=== PATIENT | male | born 1950 | race Caucasian/White ===

== ENCOUNTER 2016-06-26 00:27 | Day surgery (SDC) | payer MEDICARE, OTHER ==
[~2016-06-26] VITALS: Ht 175.3 cm; Wt 106.4 kg
[2016-06-26] VITALS (13 sets, daily range): BP systolic 119–165; BP diastolic 70–108; PULSE 55–69; RESP 11–18; O2SAT 95–100
[~2016-06-26 00:27] MED LIST: BUPR150T6 PO; BUSP5TAB3 PO; INS7030U SUBQ; INSU3INS3 SUBQ; LISI10TA2 PO; PRAZ2CAP2 PO; RISP2TAB3 PO; SIMV20TA4 PO; SOLI5TAB2 PO; TRAZ-118 PO; ZYL100 PO
[2016-06-26] MEDS ORDERED: 0.9% Sodium Chloride 1,000 ML IV ONE (08:16)
[2016-06-26] MEDS ORDERED: LOSA100T29 PO (09:18)
[2016-06-26] MEDS ORDERED: INSU100I13 SUBQ (09:18)
[2016-06-26] MEDS ORDERED: TRIH5TAB2 PO (09:18)
[2016-06-26] MEDS ORDERED: RISP3TAB3 PO (09:18)
[2016-06-26] MEDS ORDERED: CHOL500011 PO (09:18)
[2016-06-26] MEDS ORDERED: BUSP15TA3 PO ×2 (09:18→09:19)
[2016-06-26] MEDS ORDERED: FLUT16SP NS (09:18)
[2016-06-26] MEDS ORDERED: DICL50TA7 PO (09:18)
[2016-06-26] MEDS ORDERED: HYDR-4003 PO (09:18)
[2016-06-26] MEDS ORDERED: FINA5TAB9 PO (09:18)
[2016-06-26] MEDS ORDERED: MIRA50TA PO (09:20)
[2016-06-26] MEDS ORDERED: INSU100I SUBDERMAL (12:04)
[2016-06-26] MEDS ORDERED: CARV3.122 PO (12:04)
[2016-06-26] MEDS ORDERED: MULT-666 PO (12:06)
[2016-06-26] MEDS ORDERED: BUPR150T12 PO (12:06)
--- NOTE | 2016-06-26 12:14 | NUR ---
[facility] ADMIT 66 YR OLD MALE ADMITTED TO [facility] FOR LEFT HEART CATH TODAY AT 1100. IVS WERE STARTED, QUESTIONS ANSWERED, AND CONSENT IS SIGNED. MED REC ALSO COMPLETED AND UPDATED.
[2016-06-26] MEDS ORDERED: Heparin 1,000 Units/500 mL NS Premix IV ONE (12:40)
[2016-06-26] MEDS ORDERED: 0.9% Sodium Chloride 1,000 ML ONE (12:40)
[2016-06-26] MEDS ORDERED: Heparin 1,000 Unit/mL 10 mL Inj ONE (12:40)
[2016-06-26] MEDS ORDERED: fentaNYL-PF 50 mCg/mL 2 mL Inj ONE (13:03)
[2016-06-26] MEDS ORDERED: 0.9% Sodium Chloride 250 ML IV PRN (14:11)
[2016-06-26] MEDS ORDERED: 0.9% Sodium Chloride 1,000 ML IV PRN (14:11)
[2016-06-26] MEDS ORDERED: Atropine 1 mg/10 mL (Code) Syringe IVPUSH PRN (14:15)
[2016-06-26] MEDS ORDERED: Ondansetron 2 mg/mL 2 mL Inj IVPUSH PRN (14:15)
--- NOTE | 2016-06-26 14:28 | PCM.CVCATH ---
Cardiac Cath Report Date of Service Jun 26, 2016 Primary Indication Ventricular tachycardia during treadmill study. Procedure 1. Left heart catheterization. 2. Selective coronary angiogram 3. Left ventricular angiogram 4. Right femoral angiogram Vascular Access Right common femoral artery Procedure Details The patient was brought into the catheterization laboratory. The patient was nothing by mouth since midnight. The patient was prepped and sterilized in the appropriate fashion. Local anesthetic was given to the right groin region with lidocaine 1%. A percutaneous stick to the right groin region with an 18-gauge Seldinger needle was attempted. A 5 Welsh sheath was inserted into the right femoral artery. A 5 Welsh FL 4 diagnostic catheter was advanced and engaged into the left main. The left coronary angiography was performed in multiple views. The catheter was exchanged over the wire for a 5 Welsh FR4 diagnostic catheter. The catheter was engaged in the right coronary ostium and the right coronary angiography was performed in multiple views. The catheter was removed over the wire and exchanged for 5 Welsh angle pigtail catheter. LV hemodynamics were recorded. Left ventricular angiography was performed at 12 mL /s for total 36 mL of contrast. LV pullback was performed. All catheters were removed. The right femoral angiogram was performed. Hemostasis was obtained with manual compression. The patient was transferred back to special observation unit for post procedural monitoring. There were no immediate complications. Total fluoroscopy time: 2.7 minutes Total fluoroscopy dosage: 1001 mGy Estimated blood loss: 10 mL Total contrast: 55 mL Findings 1. Hemodynamics: The left ventricular systolic pressure was estimated at 166 mmHg and the left ventricular end-diastolic pressure was estimated at 18 mmHg. There is no significant gradient during pullback. The aortic pressure was 165/89 mmHg. 2. Selective coronary angiography: A. Left main: There artery has no evidence of significant disease. It trifurcates into the left anterior, ramus intermedius and left circumflex arteries. B. Left anterior descending artery: There is a 50-60% proximal LAD stenosis. In the mid LAD there is a 50% stenosis. Distal this there is only mild diffuse disease. C. Left circumflex artery: There is no evidence of significant disease. This is a nondominant artery. D. Right coronary artery: There is no significant disease in the proximal and midportion. At most, there is a 50% mid RCA stenosis. The distal portion involving the posterior descending artery, there is a 60-70% stenosis in the mid PDA. The posterior lateral branch arteries have no evidence of significant disease. This is the dominant artery. E. Ramus intermedius: No significant disease visualized. 3. Left ventricular angiogram: The ejection fraction is around 55-60% %. There is no appreciable LV wall motion abnormalities. 4. Right femoral angiogram: There is no evidence of significant disease. Complications There were no periprocedural complications identified. Summary 1. Moderate disease in the PDA, mid RCA, mid and proximal LAD. 2. Mild disease elsewhere in the major epicardial coronaries angiography. 3. Normal LV ejection fraction with no evidence of LV wall motion abnormalities. 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 His carvedilol will be increased to 6.25 mg twice a day. However he has no evidence of ischemia based on a stress EKG and echocardiogram and today's coronary angiogram shows no severe disease. Images have been reviewed with on- call interventionalist and agreed that no PCI is needed at this time. However would like to make some few changes with his medicines. I will like to change his simvastatin to atorvastatin and increase his carvedilol as mentioned above. Otherwise I think he should be fine for his upcoming elective surgery. The patient should also be on a small dose aspirin but this can be placed on hold prior to surgery. Chris Ye MD Jun 26, 2016 14:28
[2016-06-26] MEDS ORDERED: ATOR20TA PO (17:37)
--- NOTE | 2016-06-26 18:27 | NUR ---
[facility] DISCHARGE PT COMPLETED BEDREST AT 1800 AND AMBULATED IN [place]. RIGHT GROIN REMAINED SOFT, NON TENDER, NO BLEEDING OR HEMATOMA NOTED. DISCHARGE INSTRUCTIONS INCLUDING F/U, MEDICATIONS, AND POST SEDATION AND CARDIAC CATHETERIZATION INSTRUCTIONS WERE REVIEWED WITH PT AND AND THEY VERBALIZED UNDERSTANDING. DR LUCERO SENT NEW RX ELECTRONICALLY TO PT'S PHARMACY. PT WAS DISCHARGED AT 1820 IN STABLE CONDITION WITH .
[2016-09-16] MEDS ORDERED: ATOR40TA69 PO (10:08)
[2016-09-16] MEDS ORDERED: CARV12.52 PO (10:08)
== END 2016-06-26 23:59 | disposition home or self-care (01) ==
LOC: SOUO 00:27
PROVIDERS: ATTEND Internal Medicine Cardiovascular Disease
DX: I25.10 Atherosclerotic heart disease of native coronary artery without angina pectoris (principal); I10 Essential (primary) hypertension; E11.9 Type 2 diabetes mellitus without complications; Z79.4 Long term (current) use of insulin; F43.10 Post-traumatic stress disorder, unspecified; E78.5 Hyperlipidemia, unspecified; I42.9 Cardiomyopathy, unspecified; G47.33 Obstructive sleep apnea (adult) (pediatric); E66.9 Obesity, unspecified; Z68.34 Body mass index [BMI] 34.0-34.9, adult; Z85.528 Personal history of other malignant neoplasm of kidney
CPT/HCPCS: 93458; 99152; 99153; C1769; J1200; J1644; J2060; J2250; J3010; J7030; Q9967

== ENCOUNTER 2016-09-17 01:14 | Day surgery (SDC) | payer MEDICARE, OTHER ==
[2016-09-17] VITALS (13 sets, daily range): BP systolic 138–176; BP diastolic 75–102; PULSE 57–83; RESP 14–16; O2SAT 95–100
[~2016-09-17] VITALS: Ht 175.3 cm; Wt 101.0 kg
[~2016-09-17 01:14] MED LIST changes: +ATOR40TA69 PO; +BUPR150T12 PO; -BUPR150T6 PO; +BUSP15TA3 PO; -BUSP5TAB3 PO; +CARV12.52 PO; +CHOL500011 PO; +FINA5TAB9 PO; -INS7030U SUBQ; +INSU100I SUBDERMAL; +INSU100I13 SUBQ; -INSU3INS3 SUBQ; -LISI10TA2 PO; +LOSA100T29 PO; +MIRA50TA PO; -RISP2TAB3 PO; +RISP3TAB3 PO; -SIMV20TA4 PO; -SOLI5TAB2 PO; -ZYL100 PO
[2016-09-17] MEDS ORDERED: fentaNYL-PF 50 mCg/mL 2 mL Inj ONE (01:15)
[2016-09-17] MEDS ORDERED: Propofol 10,000 mCg/mL 20 mL Inj ONE (01:15)
[2016-09-17] MEDS ORDERED: Phenylephrine 10,000 mCg/mL Inj ONE (01:15)
[2016-09-17] MEDS ORDERED: Succinylcholine Chloride 20 mg/mL 5 mL Inj ONE (01:15)
[2016-09-17] MEDS ORDERED: Ondansetron 2 mg/mL 2 mL Inj ONE (01:15)
[2016-09-17] MEDS ORDERED: Lactated Ringer's 1,000 ML IV SCH ×2 (05:00→10:15)
[2016-09-17] MEDS ORDERED: 0.9% Sodium Chloride 1,000 ML IV SCH (09:10)
[2016-09-17 09:48] LABS: BASOPHILS % (AUTO) 0.6 % (0-3); EOSINOPHILS % (AUTO) 1.2 % (0-5); MONOCYTES % (AUTO) 10.8 % (4-12); Mean Corpuscular Volume 89.5 fL (81-100); NEUTROPHILS % (AUTO) 60.5 % (40-74); Platelet Count 183 bil/L (150-400)
[2016-09-17] MEDS ORDERED: MULT1CAP33 PO (10:04)
[2016-09-17] MEDS ORDERED: Heparin 5,000 Units/500 mL NS Premix IV ONE (10:05)
[2016-09-17 10:07] LABS: INR 1.03 ratio
[2016-09-17] MEDS ORDERED: Dexamethasone 4 mg/mL Inj IVPUSH PRN (10:15)
[2016-09-17] MEDS ORDERED: fentaNYL-PF 50 mCg/mL 2 mL Inj IVPUSH PRN (10:15)
[2016-09-17] MEDS ORDERED: Lactated Ringer's 500 ML IV PRN (10:15)
[2016-09-17] MEDS ORDERED: Phenylephrine 10,000 mCg/mL Inj IVPUSH PRN (10:15)
[2016-09-17] MEDS ORDERED: MetoCLOpramide 5 mg/mL 2 mL Inj IVPUSH PRN (10:15)
[2016-09-17] MEDS ORDERED: HYDROmorphone 1 mg/mL Inj IVPUSH PRN (10:15)
[2016-09-17] MEDS ORDERED: Ondansetron 2 mg/mL 2 mL Inj IVPUSH PRN (10:15)
[2016-09-17] MEDS ORDERED: EPHEDrine Sulfate 50 mg/mL Inj IVPUSH PRN (10:15)
--- NOTE | 2016-09-17 10:15 | PCM.HPANE ---
Patient Data Date of Service: September 17, 2016 Surgeon Admitting Provider: Attending Provider:Gilbert Bear MD Primary Care Physician:Gilbert Bear MD Other Provider:Romario Gamez Anesthesia Reason for Visit Ventricular Tachycardia/Inducible Ht/WT & BMI Height (Feet): 5 Height (Inches): 9.00 Weight (Kilograms): 101.000 Body Mass Index 32.98 Allergies Coded Allergies: metformin (Verified Allergy, Unknown, 09/17/16) trihexyphenidyl (Verified Allergy, Unknown, 09/17/16) Past Anesthesia History Anesthesia History: Denies:: Abnormal Airway, Anesthesia Reactions, Difficult Intubation, Fam Anesthesia Reaction, Malignant Hyperthermia Diabetes History Hx Diabetes?: Yes (15 YEARS) Type of Diabetes: Type II Glycemic Control: Insulin Dependent MRSA MRSA: No Medications Hypertension Medication: No Home Meds Incl Beta Karyn: Yes Date Beta Karyn Taken: September 16, 2016 Time Beta Karyn Taken: 08:00 Reported Medications Multivitamin (Multivitamins)1 Each Capsule1 Each PO DAILY 09/17/16 Carvedilol 12.5 Mg Rocibs79.5 Mg PO BID Ref 0 09/16/16 Atorvastatin Calcium 40 Mg Pmsezz85 Mg PO DAILY Ref 0 09/16/16 Bupropion ER 150 Mg Tablet.er150 Mg PO BID Ref 0 06/26/16 Mirabegron ER (Myrbetriq)50 Mg Jtroxp10 Mg PO DAILY 06/26/16 Buspirone 15 Mg Fdpcjv17 Mg PO BID Ref 0 06/26/16 Cholecalciferol (Vitamin D3) (Vitamin D3)5,000 Unit Tablet2,000 Unit PO DAILY 06/26/16 Risperidone 3 Mg Tablet1.5 Mg PO DAILY 30 Days Ref 0 06/26/16 Losartan Potassium 100 Mg Xwsuql587 Mg PO DAILY 06/26/16 Insulin Glargine (Lantus U100 Solostar Insulin Pen)100 Unit/1 Ml Insuln.pen25 Unit SUBQ HS #1 PENINJ Ref 0 06/26/16 Finasteride 5 Mg Tablet5 Mg PO DAILY 30 Days Ref 0 06/26/16 Trazodone 100 Mg Zyjvum085 Mg PO HS #30 TABLET Ref 0 04/10/14 Prazosin 2 Mg Capsule2 Mg PO HS 30 Days 04/10/14 Discontinued Reported Medications Insulin Aspart (NovoLOG U-100 Pen)100 Unit/Ml Insuln.ust52-52 Subdermal As Directed 06/26/16 Atorvastatin (Lipitor)20 Mg Acncrk78 Mg PO HS Ref 0 06/26/16 Multivitamin (Once Daily)1 Each Tablet1 Each PO DAILY 06/26/16 Carvedilol 3.125 Mg Tablet6.25 Mg PO BID Ref 0 06/26/16 Fluticasone Propionate (Fluticasone Propionate Nasal)16 Gm [place].susp2 [place] NS BID #16 GM Ref 0 06/26/16 History History of ENT Problems?: Yes HEENT History: Denies:: Abnormal Airway Cataracts Difficult Intubation Dysphagia Hearing Problem Sinus Problem TMJ Denture Type: None Teeth Condition: Within Normal Limits Hx of Heart Problems?: Yes (syncope with VT episodes) Cardiovascular History: Positive for:: Hypertension Irregular Heartbeat (VT) Denies:: AICD Abdominal Aortic Aneurism Atrial Fibrillation Cardiac Surgery Chest Pain Congestive Heart Failure Edema Heart Murmur Pacemaker Rheumatic Fever Thrombophlebitis Valvular Heart Disease Hx of Respiratory Problem?: No Respiratory History: Positive for:: Use of C-PAP Machine Denies:: Asthma COPD Chest Surgery Cough Dyspnea Emphysema Hemoptysis Oxygen Administration Pneumonia Pulmonary Embolism Tuberculosis Hx Neurologic Problems?: Yes Neurological History: Positive for:: Dizziness Denies:: Alzheimer's Disease CVA Dementia Headaches Multiple Sclerosis Parkinson's Disease Seizures Hx of GI Problems?: No Hx of Problems?: Yes Genitourinary History: Positive for:: Kidney Stones (S/P EXTRACTION X13) Male Hx: Denies:: Prostate Problems Scrotal Mass Testicular Surgery Skin History: Denies:: History Skin Disorders? Pressure Ulcers Hx Musculoskeletal Problems?: Yes Musculoskeletal History: Positive for:: Degenerative Joint (right knee) Musculoskeletal Trauma (HX OF RT ANKLE FX) Denies:: Back Injury Joint Replacement Systemic Lupus Hx of Psycho/Social Problems?: Yes Psycho Social History: Positive for:: Anxiety (PTSD) Hx Depression Hx Surgeries?: Yes (KIDNEY STNES X13,CIRCUMCISION,RT EYE FB REMOVAL, TONSILLECTOMY) Hx Any Other Health Problems?: Yes Other History: Positive for:: Cancer (left partial nephrectomy FOR KIDNEY CANCER) Hospitalization Denies:: Endocrine Disease Thyroid Disease History Blood Transfusions: Positive for:: Accept Blood Products? Blood Transfusions Denies:: Blood Transfuse Reaction Hx Diabetes: Yes (15 YEARS) Hx Alcohol Use: YesHx Substance Use: No Smoking Status: Never Smoker Have You Smoked inLast 12 mo: No Stop/Bang Treated for Sleep Apnea?: Yes Do You Have a CPAP Machine?: Yes Did you bring your Machine? Yes KAMRYN Category 2: Yes Risk Assessment Category Category 1A: Patient has history of documented sleep apnea, and HAS NOT received any narcotic, sedative or anesthesia administration during this stay. Category 1B: Patient has history of documented sleep apnea, and HAS received any narcotic , sedative or anesthesia administration during this stay Category 2: Patient has SUSPECTED Obstructive Sleep Apnea, and HAS received any narcotic , sedative or anesthesia administration during this stay. Category 3: Patient has SUSPECTED Obstructive Sleep Apnea and HAS NOT received narcotic, sedative or anesthesia administration during this stay. Category 4: Outpatient in Procedural Areas with known sleep apnea or who screen positive for High Risk via the STOP/BANG questionnaire. Exam Exam Vital Signs Vital Signs Date Time Temp Pulse Resp B/P Pulse Ox O2 Delivery O2 Flow Rate FiO2 09/17/16 09:52 36.9 57 16 162/89 100 Room Air General Appearance: Alert, Oriented X3, Cooperative HEENT/AIRWAY: MP 3, Neck Movement (OK, slighly thick neck), Mouth Opening (OK) Lungs: Clear to Auscultation, Normal Air Movement Heart: Regular Rate/Rhythm, Normal S1, Normal S2 Meds/Labs/Diagnostics Labs Test 09/17/16 09:35 White Blood Count 5.2th/mm3 (3.8-10.1) Red Blood Count 4.46mil/mm3 (4.40-5.80) Hemoglobin 13.4g/dL (13.8-17.2) Hematocrit 39.9% (41.0-50.0) Mean Corpuscular Volume 89.5fL (81-100) Mean Corpuscular Hemoglobin 30.0pg (27.0-35.0) Mean Corpuscular Hemoglobin Concent 33.6% (32.0-37.0) Red Cell Distribution Width 12.6% (12.3-15.4) Platelet Count 183bil/L (150-400) Neutrophils (%) (Auto) 60.5% (40-74) Lymphocytes (%) (Auto) 26.7% (14-46) Monocytes (%) (Auto) 10.8% (4-12) Eosinophils (%) (Auto) 1.2% (0-5) Basophils (%) (Auto) 0.6% (0-3) Diagnositcs echo, cath reviewed. EF normalized Plan Impression Patient chart reviewed, patient interviewed and anesthestic plan with risks, benefits, and alternatives discussed, and informed consent obtained. NPO per Anesth. Guidelines: Yes ASA Physical Status: ASA3 Severe Disease Anesthetic Support Modalities: [place] Scope Anesthetic Plan: GA Bene/Risks/Altern/Consents: Yes HP Complete Prior to Induction: Yes Sawyer Venegas MD September 17, 2016 10:15
[2016-09-17] MEDS ORDERED: Isoproterenol 200 mCg/50 mL D5W IV IV ONE ×2 (11:42→12:33)
--- NOTE | 2016-09-17 13:16 | PCM.ANEP1 ---
Post Anesthesia Phase 1 PACU Phase 1 Assessment Date of Service: September 17, 2016 Vital Signs T 37, RR 12, O 2 100% 10L, HR 80, BP 170/100 Vital Signs Date Time Temp Pulse Resp B/P Pulse Ox O2 Delivery O2 Flow Rate FiO2 09/17/16 09:52 36.9 57 16 162/89 100 Room Air Anesthetic Administered: GA Level of Alertness: Sleepy, easy to arouse CLARK's with Equal Strength: Yes Pain: No Nausea or Vomiting: No Cardiovascular Function and Hy: Yes Airway Device: Endotrachial Tube Oxygen Delivery: Simple Mask Lungs: Normal Air Movement Dermatome Level: Full Sensation Complications: No Follow up Care: No Patient Instructions Provided: Yes Sawyer Venegas MD September 17, 2016 13:16
--- NOTE | 2016-09-17 14:54 | PROCED ---
[address] [address] PROCEDURE NOTE PATIENT: LIS ELLIS : 1950 MR#: [id number] ADMIT: 09/17/2016 JOB ID: [id number] DATE OF SERVICE: 09/17/2016 PREOPERATIVE DIAGNOSIS(ES): Wide complex tachycardia. POSTOPERATIVE DIAGNOSIS(ES): 1. Dual AV betty physiology. 2. Likely nonsustained outflow tract ventricular tachycardia. PROCEDURES PERFORMED: 1. Comprehensive electrophysiology study. 2. Left atrial pacing recording via the coronary sinus catheter. 3. Arrhythmia provocation with isoproterenol infusion. 4. Fluoroscopy. SURGEON: Gilbert Bear M.D., electrophysiology attending. CHEMICAL WASTE MANAGEMENT TECHNICIAN: Casandra Florez; Lena Hamlin; Pietro Coker. ANESTHESIA: General endotracheal anesthesia was undertaken for this case. INDICATION: The patient is a pleasant 66-year-old man with a structurally normal heart and lack of significant epicardial coronary artery disease by angiography in the recent past who presents to meet with wide complex tachycardia. After discussion of the risks and benefits of catheter based mapping ablation, he opted to proceed. PROCEDURAL DESCRIPTION: Following informed signed consent, the patient was taken to the EP laboratory in a fasting nonsedated state, where he was prepped in the usual sterile fashion. The bilateral groins were infiltrated with 1% lidocaine. Then, using modified Seldinger technique, two 6-Nepali sheaths were inserted into the left femoral vein. A 7 and 8-Nepali sheath were inserted in the right femoral vein. Then, under fluoroscopic guidance, a deflectable decapolar catheter was advanced into the coronary sinus with the most proximal bipole at the os of the sinus. A Radha quadripolar catheter was advanced to the RV apex and a CRD 2 quadripolar catheter was advanced to the His position. A comprehensive electrophysiology study was undertaken with right atrial pacing and recording, right ventricular pacing and recording, His bundle recording, and left atrial pacing and recording via the coronary sinus catheter. Without isoproterenol no VA conduction was seen. On isoproterenol there was V conduction with a concentric atrial activation pattern. Antegrade conduction was assessed showing evidence of dual AV betty physiology with an antegrade jump and occasional echoes. No sustained arrhythmias were induced. The patient was started on isoproterenol to maximal dose of 4 mcg/minute. Aggressive induction maneuvers were undertaken from both the right ventricle and the CS catheter. At most I saw one single echo with an antegrade jump in regard to ventricular dysrhythmias. Despite aggressive maneuvers with two cyclings, up to triple extrastimuli on and off isoproterenol, we had one short nonsustained run of approximately 7-8 beats that coincided with the patient's clinical tachycardia. This was a ventricular tachycardia with a left bundle wave morphology inferior axis, transitioning at V2, V3, downgoing in aVL, biphasic in lead I consistent with likely her previous low tract PVCs or a ventricular tachycardia. This was the only run of the clinical rhythm that we saw. No PVCs were identified and no sustained runs were identified. Given the paucity of inducible dysrhythmias, no ablation was performed. All catheters and sheaths were removed. Manual pressure was held for hemostasis. The patient was transferred to the [facility] for monitoring, bedrest and discharge. COMPLICATIONS: None. ESTIMATED BLOOD LOSS: Negligible. FINDINGS: 1. Baseline rhythm is sinus with an RR interval of 1250 msec, PA 184 msec, QRS 65 msec, QTc 440 msec. 2. Intracardiac intervals: AH interval 110 msec, HV 48 msec. 3. Retrograde conduction: No VA conduction was seen off of isoproterenol. On isoproterenol VA conduction was identified with a concentric atrial activation pattern. VERP is 430 msec at a [address] 4. Antegrade conduction: An antegrade jump with single echoes were seen. AV betty ERP is 450 msec at a [address] AV Wenckebach seen at 450 msec. 5. One short burst of nonsustained VT consistent with patient's clinical tachycardia consistent with RV outflow tract origin. No ablation was performed. IMPRESSION: Dual AV betty physiology identified as well as a likely short burst of RV outflow tract VT that was not the subject of ablation. PLAN: 1. Bed rest x4 hours. 2. Continue beta blockade but switch to metoprolol succinate 50 mg PO BID. 3. Followup with me in clinic in four weeks. ATTENDING STATEMENT: Gilbert Bear M.D., electrophysiology attending was present for and supervised/performed all aspects of this procedure. [facility]PITALRhiannon
[2016-09-17] MEDS ORDERED: METO-272 PO (16:11)
== END 2016-09-17 23:59 | disposition home or self-care (01) ==
LOC: SOUO 01:14
PROVIDERS: ATTEND Internal Medicine Cardiovascular Disease
DX: I47.2 Ventricular tachycardia (principal); R55 Syncope and collapse; I25.10 Atherosclerotic heart disease of native coronary artery without angina pectoris; E11.9 Type 2 diabetes mellitus without complications; I10 Essential (primary) hypertension; E78.5 Hyperlipidemia, unspecified; G47.33 Obstructive sleep apnea (adult) (pediatric); Z79.4 Long term (current) use of insulin
CPT/HCPCS: 36415; 80048; 85025; 85610; 93613; 93620; 93621; 93623; C1730; J0330; J1644; J2250; J2370; J2405; J3010